=== PATIENT | male | born 1990 | race Two or more races ===

== ENCOUNTER → 2019-05-20 | Outpatient (CLI) | payer MEDICAID ==
[~2019-05-20] MED LIST: OMNIPAQUE 350 MG/ML, 100ML BOTTLE ONE
== END | disposition home or self-care (01) ==
LOC: RAD 18:31
PROVIDERS: ATTEND Family Medicine
DX: M25.48 Effusion, other site (principal); J02.9 Acute pharyngitis, unspecified
CPT/HCPCS: 70491; Q9967